=== PATIENT | female | born 1955 | race Caucasian/White ===

== ENCOUNTER 2017-05-15 10:50 | Day surgery (SDC) | payer OTHER ==
[~2017-05-15] VITALS: Ht 175.3 cm; Wt 64.4 kg
[~2017-05-15 10:50] MED LIST: OMEP40CA36 PO; RNT300T PO; Sodium Chloride LOK Flush 10 mL Syringe IV PRN; fentaNYL-PF 50 mCg/mL 2 mL Inj IVPUSH PRN
[2017-05-15 11:11] VITALS: BP 128/80; PULSE 65; RESP 16; O2SAT 100
[2017-05-15] MEDS ORDERED: PANT40TA3 PO (11:16)
[2017-05-15] MEDS: 0.9% Sodium Chloride 1,000 ML IV PRN ×3 (11:23→13:27)
[2017-05-15 13:53] VITALS: BP 112/72; PULSE 68; RESP 14; O2SAT 98
[2017-05-15 14:03] VITALS: BP 109/66; PULSE 62; RESP 12; O2SAT 98
[2017-05-15 14:13] VITALS: BP 108/65; PULSE 57; RESP 12; O2SAT 100
[2017-05-15 14:25] VITALS: BP 104/69; PULSE 70; RESP 14; O2SAT 98
--- NOTE | 2017-05-15 14:34 | ENDO ---
[address] [address] ENDOSCOPY PROCEDURE PATIENT: KING EM : 1955 MR#: [id number] ADMIT: 05/15/2017 JOB ID: [id number] DATE: 05/15/2017 PROCEDURE: 1. Esophagogastroduodenoscopy with biopsies. 2. Colonoscopy with random biopsies and cold forceps polypectomy. INDICATIONS: A 61-year-old female with symptoms of refractory reflux in spite of b.i.d. PPI. The diarrhea has actually worsened with the addition of the pantoprazole. Both EGD and colonoscopy are, therefore, pursued. EQUIPMENT: GIF H 180 and a PCF H 190 DL. SEDATION: 1. 9 mg Versed. 2. 150 mcg fentanyl. COMPLICATIONS: None identified. BOWEL PREPARATION: Excellent. PROCEDURAL INFORMATION: After the risks and benefits were explained, written and verbal informed consent was obtained. The patient was brought into the endoscopy suite and placed into the left lateral decubitus position. Sedation was achieved as above. The scope was introduced into the mouth through the bite block, and advanced to the second portion of the duodenum. The scope was slowly withdrawn to carefully examine the mucosa for any defects or lesions. Retroflexed views were accomplished in the stomach. The stomach was decompressed. The scope removed from the patient who tolerated the procedure well. The patient was then turned around. A digital rectal examination accomplished. No significant pathology appreciated. The scope was introduced into the rectum and advanced under direct visualization to the cecum as identified by the appendiceal orifice and ileocecal valve. The terminal ileum was briefly accessed. The scope then slowly withdrawn to carefully examine the mucosa for any defects or lesions. Retroflexed views were avoided in the rectum. Multiple direct views were made through the dentate line for exclusion of pathology. The colon was decompressed. The scope removed from the patient who tolerated the procedure well. FINDINGS: 1. Duodenum: No mucosal pathology appreciated throughout. However, considering the patient's history of diarrhea, we elected to take random biopsies for exclusion of sprue. 2. Stomach: Mild gastropathy was seen throughout. No outlet obstruction. No ulcers. No mass lesions. Random gastric biopsies were taken for exclusion of Helicobacter. Surveillance esophagogastroduodenoscopy is not anticipated at this time. Please note that historically biopsies acquired by Dr. Vazquez in 2015 disclosed some focal intestinal metaplasia. We directed our biopsies towards the antrum region but there was no specific concerning pathology noted in this location. Otherwise, retroflexed views disclosed a sliding hiatal hernia. 3. Esophagus: The squamocolumnar junction correlated with the top of the gastric folds. The GEJ was at about 41 cm from the incisors and the diaphragmatic pinchcock was at about 42 cm from the incisors. No acute erosive changes. No strictures. No mass lesions. No pathology throughout the esophagus appreciated. 4. Colon: Very tortuous challenging navigation through the left colon in particular. Terminal ileum appeared visually normal. I did not appreciate any signs of mucosal inflammation throughout. Random colon biopsies were taken for exclusion of microscopic disease. There was a diminutive polyp at the rectosigmoid region removed with cold forceps. ENDOSCOPIC DIAGNOSES: 1. Gastropathy. 2. Small sliding hiatal hernia. 3. Diminutive rectosigmoid polyp. RECOMMENDATIONS: 1. Await histopathology. 2. Repeat colonoscopy five years. 3. Stop pantoprazole. 4. Continue fiber supplementation two tablespoons ground flaxseed fiber mixed with 8 ounces of water or juice at least once daily. 5. Repeat pH evaluation with impedance. 6. Followup in my office after the pH study to review findings.
--- NOTE | 2017-05-20 10:33 | PATH ---
SURGICAL PATHOLOGY Attending Physician:Flo Sharma CASE STATUS: Signed Out PATIENT NAME: KING EM PID: [id number] : 1955 DATE COLLECTED:05/15/2017 00:00 SPECIMEN: 1: Duodenum, Biopsy 2: Stomach, Antrum, Biopsy 3: Colon, Biopsy 4: Colon, Polyp CLINICAL HISTORY: GERD, CONSTIPATION 1). DUODENUM BIOPSY 2). ANTRUM BIOPSY, RULE OUT H.PYLORI 3). RANDOM COLON BIOPSY 4). RECTOSIGMOID COLON POLYP FINAL DIAGNOSIS: 1.DUODENUM BIOPSY: FRAGMENTS OF NORMAL-APPEARING SMALL BOWEL MUCOSA. Normal delicate mucosal villi present. Negative for significant inflammation, dysplasia and malignancy. 2.GASTRIC ANTRUM BIOPSIES: FOCAL MILD CHRONIC GASTRITIS INVOLVING ANTRAL MUCOSA. Negative for evidence of Helicobacter on H&E stain. Negative for intestinal metaplasia. Negative for dysplasia and malignancy. 3.RANDOM COLON BIOPSIES: FRAGMENTS OF NORMAL-APPEARING COLON MUCOSA. Negative for significant architectural distortion. Negative for significant inflammation, dysplasia and malignancy. 4.RECTOSIGMOID COLON POLYP: TUBULAR ADENOMA INVOLVING SINGLE BIOPSY FRAGMENT. ICD10 D12.7 GROSS DESCRIPTION: Received are four formalin-filled containers, each labeled with the patient's name. 1. Received in formalin, labeled with the patient's name and "duodenum biopsy" are two fragments of carlisle soft tissue ranging in size from 0.1 x 0.1 x 0.1 cm to 0.2 x 0.1 x 0.1 cm. All fragments are totally submitted in cassette 1A. 2. Received in formalin, labeled with the patient's name and "antrum biopsy" is one fragment of carlisle soft tissue measuring 0.2 x 0.2 x 0.2 cm. The fragment is totally submitted in cassette 2A. 3. Received in formalin, labeled with the patient's name and "random colon biopsy" are two fragments of carlisle soft tissue ranging in size from 0.1 x 0.1 x 0.1 cm to 0.2 x 0.1 x 0.1 cm. All fragments are totally submitted in cassette 3A. 4. Received in formalin, labeled with the patient's name and "rectosigmoid colon polyp" are two fragments of carlisle soft tissue ranging in size from 0.1 x 0.1 x 0.1 cm to 0.2 x 0.1 x 0.1 cm. All fragments are totally submitted in cassette 4A. ([id number]) MICRO DESCRIPTION: See diagnosis. ICD-9 CODES: CPT CODES: 1: 87937 2: 51524 3: 08670 4: 71357 Electronically Signed Out Daniel Salinas MD [facility] Pathology [facility] [address], [place] [address] Technical component performed at [facility], [address], [place], [address]
== END 2017-05-15 23:59 | disposition home or self-care (01) ==
LOC: END 10:50
PROVIDERS: ATTEND Internal Medicine Gastroenterology
DX: R19.7 Diarrhea, unspecified (principal); D12.7 Benign neoplasm of rectosigmoid junction; K29.50 Unspecified chronic gastritis without bleeding; K31.9 Disease of stomach and duodenum, unspecified; K44.9 Diaphragmatic hernia without obstruction or gangrene; K21.9 Gastro-esophageal reflux disease without esophagitis; I34.8 Other nonrheumatic mitral valve disorders
CPT/HCPCS: 43239; 45380; 99153; G0500; J2250; J3010; J7030

== ENCOUNTER → 2017-07-23 | Day surgery (SDC) | payer OTHER ==
[~2017-07-23] MED LIST changes: +Lidocaine Topical 2% 30 mL Jelly ONE; -OMEP40CA36 PO; +PANT40TA3 PO; -RNT300T PO; -Sodium Chloride LOK Flush 10 mL Syringe IV PRN; -fentaNYL-PF 50 mCg/mL 2 mL Inj IVPUSH PRN
== END | disposition home or self-care (01) ==
LOC: END 02:28
PROVIDERS: ATTEND Internal Medicine Gastroenterology
DX: K21.9 Gastro-esophageal reflux disease without esophagitis (principal)